=== PATIENT | female | born 1955 | race Caucasian/White ===

== ENCOUNTER 2018-03-28 21:26 | Emergency (ER) | payer OTHER ==
[2018-03-28] MEDS ORDERED: cefTRIAXone 2 GM in Sodium Chloride 0.9% 50 ML IV SCH (23:30)
--- NOTE | 2018-03-28 23:42 | EDM.PDOC ---
ED HPI GENERAL MEDICAL PROBLEM - General Chief Complaint: Upper Extremity Injury/Pain Stated Complaint: SWOLLEN FINGER, CELLULITIS Time Seen by Provider: 03/28/18 23:13 Source of Information: Reports: Patient, Family () History Limitations: Reports: No Limitations - History of Present Illness INITIAL COMMENTS - FREE TEXT/NARRATIVE: Right middle finger injury: this is a 62-year-old female presents emergency room with her , reports slammed her hand in car door approximately 1 week ago, since that time her fingers been swollen and painful, now today has redness worsening pain. She went to urgent care clinic with instructed to go to ER for further care and evaluation. Reports no history of MRSA or diabetes. No immunocompromise disease or illness Onset: Gradual Duration: Getting Worse Location: Reports: Other Quality: Reports: Ache, Burning, Pressure Severity: Moderate Improves with: Reports: None Worsens with: Reports: None Context: Reports: Trauma (Car door injury) Associated Symptoms: Reports: No Other Symptoms Treatments FERRY PILOT: Reports: Splint(s) Right Head Pain Score (Numeric/FACES): 6 - Related Data Allergies Allergy/AdvReac Type Severity Reaction Status Date / Time Sulfa (Sulfonamide Allergy Hives Verified 03/28/18 22:57 Antibiotics) Home Meds: Home Meds Alpha Lipoic Acid 600 mg PO DAILY 03/28/18 [History] Apixaban [Eliquis] 5 mg PO BID 03/28/18 [History] Cholecalciferol (Vitamin D3) [Vitamin D3] 2,000 mg PO DAILY 03/28/18 [History] Furosemide 40 mg PO DAILY 03/28/18 [History] Isomethept/Dichlphn/Acetaminop [Xpanbetydh-Sinarjorrj-Xlgqauzv] 1 tab PO ASDIRECTED PRN 03/28/18 [History] Losartan Potassium 25 mg PO DAILY 03/28/18 [History] Multivitamin with Minerals [Multiple Vitamin] 1 tab PO DAILY 03/28/18 [History] Potassium Chloride [Klor-Con] 20 meq PO BEDTIME 03/28/18 [History] Venlafaxine HCl [Venlafaxine HCl ER] 75 mg PO BEDTIME 03/28/18 [History] Past Medical History HEENT History: Reports: Impaired Vision Cardiovascular History: Reports: Afib, Hypertension Respiratory History: Reports: Sleep Apnea Gastrointestinal History: Reports: Colon Polyp Genitourinary History: Reports: Renal Calculus [employer] History: Reports: Musculoskeletal History: Reports: Arthritis, Fracture Neurological History: Reports: Migraines Psychiatric History: Reports: Depression Endocrine/Metabolic History: Reports: Vitamin D Deficiency Dermatologic History: Reports: Urticaria - Infectious Disease History Infectious Disease History: Reports: Chicken Pox, Measles - Past Surgical History GI Surgical History: Reports: Colonoscopy, Polypectomy Female Surgical History: Reports: Hysterectomy, Oophorectomy Musculoskeletal Surgical History: Reports: Knee Replacement Social & Family History - Tobacco Use Smoking Status *Q: Never Smoker - Caffeine Use Caffeine Use: Reports: Coffee - Recreational Drug Use Recreational Drug Use: No Review of Systems - Review of Systems Review Of Systems: See Below Constitutional: Reports: No Symptoms (Treatment possible) Musculoskeletal: Reports: Other (Right middle finger with edema, pain, redness. Injury one week ago, ) Skin: Reports: Bruising (Right middle finger) Neurological: Reports: No Symptoms Psychiatric: Reports: No Symptoms ED EXAM, GENERAL - Physical Exam Exam: See Below Exam Limited By: No Limitations General Appearance: Alert, WD/WN, No Apparent Distress, Anxious (URINE culture on 3) Extremities: Arm Pain (Right middle finger with marked edema unable to flex the finger, fingertip with positive CMS. No open wounds or discharge home rate third MCP with edema also and redness.) Neurological: No Motor/Sensory Deficits Psychiatric: Normal Affect, Normal Mood, Tearful Skin Exam: Warm, Other (Right middle finger with) Lymphatic: No Adenopathy Course - Vital Signs Last Recorded V/S: Last Vital Signs Temp 36.7 C 03/28/18 23:14 Pulse 82 03/28/18 23:14 Resp 16 03/28/18 23:14 BP 147/94 H 03/28/18 23:14 Pulse Ox 97 03/28/18 23:14 - Orders/Labs/Meds Orders: Active Orders 24 hr Category Date Time Status cefTRIAXone [Rocephin] 2 gm Med 03/28/18 23:30 Active Sodium Chloride 0.9% [Normal Saline] 50 ml IV Q24H Medication Orders Ceftriaxone Sodium 2 gm/ (Sodium Chloride) 50 mls @ 100 mls/hr IV Q24H VIC Last Admin: 03/28/18 23:52 Dose: 100 mls/hr Labs: Laboratory Tests 03/28/18 03/28/18 Range/Units 23:37 23:37 WBC 8.0 (4.5-11.0) K/uL RBC 4.98 (3.30-5.50) M/uL Hgb 15.5 H (12.0-15.0) g/dL Hct 46.1 (36.0-48.0) % MCV 93 (80-98) fL MCH 31 (27-31) pg MCHC 34 (32-36) % Plt Count 291 (150-400) K/uL Neut % (Auto) 65 (36-66) % Lymph % (Auto) 21 L (24-44) % [place] % (Auto) 12 H (2-6) % Eos % (Auto) 1 L (2-4) % Baso % (Auto) 1 (0-1) % Sodium 145 (140-148) mmol/L Potassium 3.4 L (3.6-5.2) mmol/L Chloride 103 (100-108) mmol/L Carbon Dioxide 30 (21-32) mmol/L Anion Gap 15.4 H (5.0-14.0) mmol/L BUN 26 H (7-18) mg/dL Creatinine 1.1 H (0.6-1.0) mg/dL Est Cr Clr Drug Dosing 46.49 mL/min Estimated GFR (MDRD) 50 L (>60) Glucose 103 (74-106) mg/dL Calcium 9.2 (8.5-10.1) mg/dL Meds: Medications Generic Name Dose Route Start Last Admin Trade Name Freq PRN Reason Stop Dose Admin Ceftriaxone Sodium 2 gm/ 50 mls @ 100 mls/hr 03/28/18 23:30 03/28/18 23:52 Sodium Chloride IV 100 mls/hr Q24H [facility] Administration - Re-Assessments/Exams Free Text/Narrative Re-Assessment/Exam: 03/28/18 23:43 Will give Rocephin 2 g IV now, labs CBC and BMP. 03/29/18 00:18 wbc 8.0 will discharge to home. recheck in next 1 to 2 days Departure - Departure Time of Disposition: 00:47 Disposition: Home, Self-Care 01 Condition: Good Clinical Impression: Cellulitis and abscess of finger, unspecified - Discharge Information Instructions: Cellulitis, Adult Referrals: PCP,None [Primary Care Provider] - Forms: ED Department Discharge Care Plan Goals: Finger Cellultis -start in morning; Keflex 500mg take one 4 times a day for 10 day -keep hand elevated -may apply warm moist heat to hand two to three times a day -wound check in 1 to 2 return to clinic or er if not improved or symptoms worsen - Problem List & Annotations (1) Cellulitis and abscess of finger, unspecified SNOMED Code(s): 325456681 Code(s): L03.019 - CELLULITIS OF UNSPECIFIED FINGER; L02.519 - CUTANEOUS ABSCESS OF UNSPECIFIED HAND Status: Acute Priority: High Current Visit: Yes - Problem List Review Problem List Initiated/Reviewed/Updated: Yes - My Orders Last 24 Hours: My Active Orders 03/28/18 23:30 cefTRIAXone [Rocephin] 2 gm Sodium Chloride 0.9% [Normal Saline] 50 ml IV Q24H - Assessment/Plan Last 24 Hours: My Active Orders 03/28/18 23:30 cefTRIAXone [Rocephin] 2 gm Sodium Chloride 0.9% [Normal Saline] 50 ml IV Q24H Plan: Finger Cellultis -start in morning; Keflex 500mg take one 4 times a day for 10 day -keep hand elevated -may apply warm moist heat to hand two to three times a day -wound check in 1 to 2 return to clinic or er if not improved or symptoms worsen
== END 2018-03-29 01:12 | disposition home or self-care (01) ==
LOC: JP.ED 21:26
DX: L03.011 Cellulitis of right finger (principal); L02.511 Cutaneous abscess of right hand; I10 Essential (primary) hypertension; I48.91 Unspecified atrial fibrillation; Z88.2 Allergy status to sulfonamides; Z79.899 Other long term (current) drug therapy
CPT/HCPCS: 36415; 80048; 85025; 96365; 99284; J0696; J7050